=== PATIENT | female | born 1985 | race Caucasian/White ===

== ENCOUNTER 2024-12-27 02:24 | Inpatient (IN) | payer BC ==
[~2024-12-27] VITALS: Ht 170.2 cm; Wt 86.2 kg
[2024-12-27] MEDS: acetaminophen 1,000mg/100ml IV 100 ML IV ONE (02:36)
[2024-12-27] MEDS: metoclopramide 5 mg/ml inj IV ONE (02:36)
[2024-12-27 02:47] LABS: MEAN PLATELET VOLUME 7.4 FL (7.4-10.4); RED CELL DISTRIBUTION WIDTH 14.9 % (11.5-14.5)
[2024-12-27 02:49] LABS: CREATININE 1.01 MG/DL (0.40-0.90); ETHANOL < 10 MG/DL (<10); TOTAL CARBON DIOXIDE 29.8 MMOL/L (24-32); eCRCL 71 ML/MIN; eGFR 60 ML/MIN
--- NOTE | 2024-12-27 03:06 | Physician Documentation ---
History of Present Illness ~ Chief Complaint: Vomiting Stated Complaint: VOMITING,SICK Time Seen by MD: 02:28 HPI Patient presents to the emergency room with sudden onset nausea and vomiting along with splitting headache. Onset of symptoms prior to calling ambulance. Patient states nausea was sudden onset and she was just hanging out. After the nausea and vomiting began she developed a splitting headache the worse she has ever had. No history of headaches. Medication Reconciliation Allergies: Coded Allergies: Sulfa (Sulfonamide Antibiotics) (Verified Allergy, Mild, Rash, 12/27/24) Review of Systems ROS All review of systems negative except as per HPI Physical Exam Vital Signs: Temperature: 98.4, Source: Oral, Heart Rate: 52, Respiratory Rate: 20, BP: 202/118, Pulse Oximetry: 96, Weight: 86.200 Physical Exam General: Patient is awake, alert, oriented x4 in moderate distress Head: Normocephalic and atraumatic. Eyes: Conjunctival normal. EOMI. PERRL. ENT: Mucous membranes moist. Neck: Supple, trachea is midline. Chest: Clear to auscultation bilaterally without rales, rhonchi, or wheezes. There is no accessory muscle use or retractions. Cardiac: Sinus Juan Carlos without murmurs, gallops, or rubs. Abd: Soft, nondistended, nontender, with normoactive bowel sounds. No guarding, rebound, or rigidity. Neuro: Cranial nerves II-XII grossly intact. No focal neuro deficits. Progress Progress Note Initial troponin came back positive. Immediate EKG ordered which does not show any ST-elevation. She denies any chest pain. She does report history of hypertension however denies history of hyperlipidemia, diabetes and does not smoke. She denies first-degree relative with heart disease. Results/Orders Results/Orders Orders - CABRERA GERBER MD Ct Head (12/27/24 02:55) Chest,Single View (12/27/24 03:33) Cta Neck/Head (12/27/24 04:19) Diltiazem-Ns 100mg/100ml (Cardizem-Ns 10 (12/27/24 03:15) Heparin 25,000 Unit/250ml Bag (Heparin 2 (12/27/24 03:40) Heparin 10,000 Unit/Ml 1ml (Heparin 10,0 (12/27/24 03:40) Cbc/Diff (12/28/24 03:00) Cbc/Diff (12/29/24 03:00) Cbc/Diff (12/30/24 03:00) Cbc/Diff (12/31/24 03:00) Cbc/Diff (01/01/25 03:00) Drug Screen, Urine (12/27/24 03:45) Page Hospitalist (12/27/24 05:17) Fill Out Med Reconciliation (12/27/24 05:17) Ua W/Microscopic, Cult If Ind (12/27/24 04:59) Completed Orders - CABRERA GERBER MD Diphenhydramine Inj (Benadryl Inj.) (12/27/24 02:30) Metoclopramide Inj (Reglan Inj) (12/27/24 02:30) Prochlorperazine Inj (Compazine Inj) (12/27/24 02:30) Ct Head (12/27/24 02:55) Acetaminophen 1,000mg/100ml Iv (Ofirmev (12/27/24 02:30) Ethanol (12/27/24 02:31) Cbc/Diff (12/27/24 02:31) Lipase (12/27/24 02:31) Hcg, Ur Ql (12/27/24 02:31) Hs Troponin I W Calculations (12/27/24 02:31) BMP (12/27/24 02:31) Troponin (Single) (12/27/24 03:00) Aspirin 325mg Tablet (Aspirin 325mg Tabl (12/27/24 03:05) PBNP (12/27/24 03:01) Chest,Single View (12/27/24 03:33) Cta Neck/Head (12/27/24 04:19) Iohexol 350mg/Ml 100ml (Omnipaque 350mg/ (12/27/24 03:10) Electrocardiogram (12/27/24 ) Aspirin 325mg Tablet (Aspirin 325mg Tabl (12/27/24 03:40) Pt Inr (12/27/24 03:40) PTT (12/27/24 03:40) Fentanyl/Pf (Fentanyl 0.05 Mg/Ml Syringe (12/27/24 03:50) Message To Nursing (12/27/24 03:50) Heparin 10,000 Unit/Ml 1ml (Heparin 10,0 (12/27/24 03:55) Message To Nursing (12/27/24 03:55) Troponin (Single) (12/27/24 04:35) Ketorolac Trometh 15mg/Ml Vial (Toradol (12/27/24 04:40) Medications Received in ER Medications (Trade) Dose Ordered Sig/Ervin Route PRN Reason Start Time Stop Time Status Last Admin Dose Admin (Benadryl inj.) 50 mg ONCE ONCE IV 12/27/24 02:30 12/27/24 02:31 DC 12/27/24 02:35 50 MG (Reglan inj) 10 mg ONCE ONCE IV 12/27/24 02:30 12/27/24 02:31 DC 12/27/24 02:36 10 MG (Compazine inj) 5 mg ONCE ONCE IV 12/27/24 02:30 12/27/24 02:31 DC 12/27/24 02:36 5 MG Acetaminophen 100 ml @ 400 mls/hr ONCE ONCE IV 12/27/24 02:30 12/27/24 02:44 DC 12/27/24 02:36 400 MLS/HR Diltiazem HCl 100 ml @ 5 mls/hr Q20H IV 12/27/24 03:15 12/27/24 03:26 5 MLS/HR (aspirin 325mg tablet) 1 tab ONCE ONCE PO 12/27/24 03:40 12/27/24 03:41 DC 12/27/24 03:42 1 TAB (fentaNYL 0.05 MG/ML syringe) 50 mcg ONCE ONCE IV 12/27/24 03:50 12/27/24 03:51 DC 12/27/24 03:59 50 MCG (heparin 10,000 unit/ml 1ml inj) 4,000 units ONCE ONCE IV 12/27/24 03:55 12/27/24 03:56 DC 12/27/24 03:55 4,000 UNITS (Toradol injection) 15 mg ONCE ONCE IV 12/27/24 04:40 12/27/24 04:51 DC 12/27/24 04:53 15 MG Vital Signs 12/27/24 12/27/24 12/27/24 12/27/24 02:27 03:15 03:16 03:26 Temp 98.4 Pulse 52 70 75 Resp 20 18 16 B/P (MAP) 202/118 197/118 (144) 197/118 Pulse Ox 96 97 12/27/24 04:29 Pulse 80 Resp 16 B/P (MAP) 142/98 (113) Pulse Ox 95 Laboratory Tests Test 12/27/24 02:32 12/27/24 03:11 12/27/24 04:42 12/27/24 04:59 White Blood Count 14.0 H Red Blood Count 4.40 Hemoglobin 13.0 Hematocrit 38.6 Mean Corpuscular Volume 87.9 Mean Corpuscular Hemoglobin 29.6 Mean Corpuscular Hemoglobin Concent 33.7 Red Cell Distribution Width 14.9 H Platelet Count 366 Mean Platelet Volume 7.4 Neutrophils (%) (Auto) 79.0 H Lymphocytes (%) (Auto) 15.4 L Monocytes (%) (Auto) 4.5 Eosinophils (%) (Auto) 0.5 Basophils (%) (Auto) 0.6 Neutrophils # (Auto) 11.0 H Lymphocytes # (Auto) 2.2 Monocytes # (Auto) 0.6 Eosinophils # (Auto) 0.1 Basophils # (Auto) 0.1 CBC Comment Prothrombin Time 10.3 INR International Normalized Ratio 1.0 Activated Partial Thromboplast Time 25 Coagulation Comments Sodium Level 139 Potassium Level 3.6 Chloride Level 102 Carbon Dioxide Level 29.8 Anion Gap 7 L Blood Urea Nitrogen 17 Creatinine 1.01 H Estimated GFR/1.73 m2 60 BUN/Creatinine Ratio 16.8 Glucose Level 120 H Calcium Level 9.0 Troponin I High Sensitivity 186 *H 272 *H 339 *H Albumin 3.7 Lipase 16 Chemistry Comments Ethyl Alcohol Level < 10 Pro-B-Type Natriuretic Peptide 156 H Urine Specimen Description Cln catch midstream Urine Color Yellow Urine Clarity Slightly cloudy Urine pH 7.5 Urine Specific [place] 1.010 Urine Protein Negative Urine Glucose (UA) Negative Urine Ketones Negative Urine Occult Blood Large H Urine Nitrite Negative Urine Bilirubin Negative Urine Urobilinogen 0.2 Urine Leukocyte Esterase Negative Volume Urine Centrifuged 10 ml Urine HCG, Qualitative Negative Urine Comment Drug Screen Comment Medical Decision Making Findings Who presented to the emergency room with significant nausea and headache. Differentials include but are not limited to gastritis, migraine, intracranial bleeds, dehydration, electrolyte disturbances, ACS therefore emergent labs ordered. Labs concerning for elevated troponins. EKGs reassuring for no ST- elevation. Patient's blood pressure was over 200 upon arrival possible hypertensive emergency. That has concern for intracranial process cause her head was described as where she has ever had therefore CT and CTA was performed which were reassuring. Departure Admitted to Inpatient Unit: yes, to hospitalist Impression: Primary Impression: NSTEMI (non-ST elevated myocardial infarction) Additional Impressions: Hypertensive emergency Headache Condition: Guarded Referrals: NO PRIMARY CARE PROVIDER (PCP) Critical Care Note Total Time (mins): 56 Critical Care Note The very real possibility of a deterioration of this patient's condition required the highest level of my preparedness for sudden, emergent intervention. I provided critical care services, which included medication orders, frequent reevaluations of the patient's condition and response to treatment, ordering and reviewing test results, and discussing the case with various consultants. Excludes time spent performing separately billable procedures. The critical care time associated with the care of the patient was 56 minutes not counting procedures Signature Scribe Signature: No scribe Attestation: The note accurately reflects work and decisions made by me.Cabrera Gerber MD 12/27/24 05:30 CABRERA GERBER MD Dec 27, 2024 03:06
--- NOTE | 2024-12-27 03:13 | ELECTROCARDIOGRAPH REPORT ---
[facility] Test Date: 2024-12-27 Test Time: 03:04:32 Pat Name: SHERRIE BENNETT Department: EMERGENCY ROOM Room: Gender: F [employer]: PM : 1985 Requested By: ALVARO GIBSON Order Number: [id number] Reading MD: Measurements Intervals [place] Rate: 73 P: 15 [place]: 182 QRS: -2 QRSD: 81 T: 27 QT: 392 QTc: 432 Interpretive Statements Sinus rhythm Probable left atrial enlargement Please click the below link to view image of tracing.
[2024-12-27] MEDS: diltiazem-NS 100mg/100ml 100 ML IV SCH (03:26)
--- NOTE | 2024-12-27 03:30 | RADIOLOGY REPORT ---
Clinical History HUSSEIN Comparison None Technique: Contiguous axial CT images of the head without intravenous contrast administration. Coron al and sagittal reformation was performed. All CT scans at this medical facility are performed using dose modulation techniques as appropriate t o a performed exam including the following: Automated exposure control was utilized; adjustment of th e mA and/or kV according to patient size; and use of iterative reconstruction technique. All CT studies are reported to the Dose Index Registry of the [employer]. Without Contrast Radiation Dose: CTDI (mGy): 56; DLP (mGy-cm): 1144 SABRINA, SHERRIE, [id number] Findings: The brain parenchyma shows normal garcia-white matter differentiation without any mass, bleed, edema, o r herniation. The sulci, cisterns, and ventricles are intact. No extra-axial fluid collection or sk ull lesion is present. The imaged portions of the paranasal sinuses and mastoid air cells are clear. Both orbits are grossl y normal. Impression: 1. No acute intracranial abnormality. This report was electronically signed by Nacho Olivas MD on 12/27/2024 3:27:34 AM.
[2024-12-27 03:38] LABS: PRO BRAIN NATRIURETIC PEPTIDE 156 PG/ML (0-125)
[2024-12-27] MEDS ORDERED: heparin 10,000 units/1 ML INJ IV PRN (03:40)
[2024-12-27] MEDS ORDERED: heparin 10,000 units/1 ML INJ IV ONE (03:40)
[2024-12-27] MEDS: MESSAGE TO NURSING IV ONE ×2 (03:50→03:55)
[2024-12-27] MEDS: heparin 10,000 units/1 ML INJ IV ONE (03:55)
[2024-12-27] MEDS: fentaNYL/PF 50MCG/1 ML 2ML syringe IV ONE (03:59)
[2024-12-27 04:06] LABS: APTT 25 SECONDS (22-32); INR 1.0 INR
--- NOTE | 2024-12-27 04:12 | [facility] CONSULT REPORT ---
[facility] Procedure Note [facility] Procedure Note Consult [facility] Note # Demographics Consult Type: General Neurology Patient Location: Emergency Room First Name: SHERRIE Last Name: SABRINA Date of : 1985 Age: 39 Gender: Female Facility: [facility] Time of Initial Page (): 12/27/2024 03:49 Time of Return Call (): 12/27/2024 03:50 # HPI Chief Complaint: - headache History: 39 yo F p/w sudden onset of severe headache. It's pounding and located on the top of her headache. It's associated with photophobia, nausea and vomiting. 10/10 at its worst, now 8/10 after IV Tylenol and Compazine. She has history of headache but never this severe. Last Known Normal: Midnight # Scores Level of Consciousness 1a: [0] = Alert; keenly responsive LOC Questions 1b: [0] = Answers both questions correctly LOC Commands 1c: [0] = Performs both tasks correctly Best Gaze 2: [0] = Normal Visual 3: [0] = No visual loss Facial Palsy 4: [0] = Normal symmetrical movements Motor Arm Left 5a: [0] = No drift Motor Arm Right 5b: [0] = No drift Motor Leg Left 6a: [0] = No drift Motor Leg Right 6b: [0] = No drift Limb Ataxia 7: [0] = Absent Sensory 8: [0] = Normal Best Language 9: [0] = No aphasia Dysarthria 10: [0] = Normal Extinction and Inattention 11: [0] = No abnormality NIHSS Total: 0 # ROS Additional: - complete review of systems otherwise negative # PMH-FH-SH Past Medical History: - hypertension # Data Head CT: - no bleed # Assessment Impression: Migrainous headache Ruling out aneurysmal subarachnoid hemorrhage # Plan Imaging: (urgency: routine): - CT Angiogram Head and CT Angiogram Neck AND call back with results if abnormal Medication: - migraine cocktail: Toradol 30 mg IV + Benadryl 25 mg IV + antiemetic IV Other: - If patient has any neurological deterioration please call me back immediately - If CTA negative and symptoms resolved may dispo; otherwise would admit for MRI w/wo and symptom control - I have discussed my recommendations with the referring provider # Logistics Attestation of consult completion: The patient is located at: [facility]. Facility staff participated in the visit. I performed this telemedicine visit from my offsite office utilizing interactive 2 way audio and visual telecommunication technology. Total time spent in telemedicine encounter: I spent 20 minutes reviewing clinical data and/or imaging, obtaining history, examining the patient, communicating with the onsite care team, and in preparation of this report. # Demographics First Name: SHERRIE Last Name: SABRINA Facility: [facility] Electronically signed at 12/27/2024 04:11 (Juana Diaz Time) by Marifer Hand MD Neuro Consult Order placed for: Yes MARIFER HAND MD Dec 27, 2024 04:12
--- NOTE | 2024-12-27 04:20 | RADIOLOGY REPORT ---
Clinical History cp Comparison None Technique: Single chest x-ray Without Contrast SHERRIE BENNETT, [id number] Findings: Heart - normal lungs - no consolidation. No pneumothorax bones - no acute fracture. Other- Impression: 1. No acute cardiopulmonary disease This report was electronically signed by Maxwell Gardner MD on 12/27/2024 4:17:10 AM.
[2024-12-27] MEDS: ketorolac trometh 15mg/ml vial 15 MG/ML ML IV ONE (04:53)
--- NOTE | 2024-12-27 05:20 | RADIOLOGY REPORT ---
Procedure: CT CTA NECK/HEAD HISTORY: possible stroke Comparison Study: None Exam Date:12/27/2024 04:07 AM TECHNIQUE: CTA head without and with intravenous contrast. CTA neck with intravenous contrast. 3D abbie ONEPLE postprocessing was performed and images were used for interpretation and reporting. Radiation Dose : CT Dose: CTDI volume is 25 mGy. Dose-length product is 50 mGy*cm FINDINGS: CTA head: There is normal enhancement of the visualized distal internal carotid, anterior and middle cerebral a rteries. There is a normal anterior communicating artery complex. There are bilateral posterior commu nicating arteries. The vertebral, basilar, cerebellar and posterior cerebral arteries are within norm al limits. The early parenchymal enhancement is grossly unremarkable. The visualized intracranial mira ous structures are grossly unremarkable. CTA neck: The visualized thoracic aortic arch and proximal great vessels are unremarkable. The left common, int ernal and external carotid arteries are within normal limits. The right common, internal and external carotid arteries are within normal limits. The cervical segments of the right and left vertebral art eries are within normal limits. The limited visualized lung apices are clear. The surrounding soft ti ssues and osseous structures are otherwise unremarkable. IMPRESSION: No evidence of hemodynamically significant intracranial stenosis, proximal occlusion or aneurysm. No evidence of hemodynamically significant cervical stenosis or dissection. CAROTID STENOSIS REFERENCE Distal internal carotid artery diameter as the denominator for stenosis measurement: MILD = <50% stenosis. MODERATE = 50-69% stenosis. SEVERE = 70-89% stenosis. CRITICAL = 90-99% stenosis. OCCLUDED = 100% stenosis. All CT scans at this medical facility are performed using dose modulation techniques as appropriate t o a performed exam including the following: Automated exposure control was utilized; adjustment of th e MA and/or KV according to patient size; and use of iterative reconstruction technique.
[2024-12-27 05:21] LABS: LEUKOCYTE ESTERASE ,URINE NEGATIVE (Neg); NITRITES, URINE NEGATIVE (Neg); OCCULT BLOOD,URINE LARGE (Neg)
[2024-12-27 05:22] LABS: UA COLLECTION TYPE CLN CATCH MIDSTREAM
[2024-12-27 05:23] LABS: URINE HCG NEGATIVE (NEG)
[2024-12-27 05:28] LABS: AMORPHOUS PHOSPHATES 1+; SQUAMOUS EPITHELIAL CELL,UR MANY /LPF (FEW)
[2024-12-27] MEDS: heparin 25,000 UNIT/250ml bag 250 ML IV PRN (05:30)
[2024-12-27 05:35] LABS: URINE AMPHETAMINE SCREEN NEGATIVE (Neg); URINE BARBITUATE SCREEN NEGATIVE (Neg); URINE BENZODIAZEPINES SCREEN NEGATIVE (Neg); URINE CANNABINOID SCREEN POSITIVE (Neg); URINE COCAINE SCREEN NEGATIVE (Neg); URINE METHADONE SCREEN NEGATIVE (Neg); URINE OPIATE SCREEN NEGATIVE (Neg); URINE PHENCYCLIDINE SCREEN NEGATIVE (Neg)
--- NOTE | 2024-12-27 08:23 | HISTORY AND PHYSICAL ---
History & Physical Providers to CC , headaches, nausea, vomiting, elevated blood pressure ~ History of Present Illness Reason for Admit\Complaint: As above History of Present Illness This is a 39 years old white female with history of uncontrolled blood pressure, history of migraine headaches, presented today to emergency department chief complaint headaches associated nausea vomiting and elevated blood pressure; in addition Patient presents to the emergency room with sudden onset nausea and vomiting along with splitting headache. Onset of symptoms prior to calling ambulance. Patient states nausea was sudden onset and she was just hanging out. After the nausea and vomiting began she developed a splitting headache the worse she has ever had. No history of headaches. In emergency department patient was evaluated by physician and virtual neurologist, diagnosed with non ST-elevation GA, hypertensive emergency, headaches, and decision was made to admit patient for further evaluation and treatment, no additional complaint or concern. Allergies: Coded Allergies: Sulfa (Sulfonamide Antibiotics) (Verified Allergy, Mild, Rash, 12/27/24) Active prescriptions I reviewed reconciled Home Medications Pending Past Medical History Past Medical History As in [facility] Past Surgical History Surgical History Comment As in [facility] Past Social History Social History Comment Deny illicit drug abuse tobacco alcohol use live with the family good social support Health Maintenance Health Maintenance Noncontributory ROS ROS Constitutional : no fever , no chills, or weakness. No diaphoresis. Allergic/Immunologic, no lymphadenopathy, no hives, no skin eruptions. Eyes, no recent visual changes, no eye pain, no photophobia. Ears, nose, mouth, throat, no sore throat, no nosebleed, no ear pain. Cardiovascular, no palpitations, skipped beats, chest pain, no peripheral edema, Respiratory, no dyspnea, orthopnea, cough, hemoptysis, chest wall pain. Gastrointestinal, no abdominal pain, positive for nausea, vomiting, no constipation or diarrhea. : no dysuria, hematuria, pelvic pain, urethral d/c. Endocrine, no polyuria, polydipsia, recent unintentional weight gain or loss. Hematologic/Lymphatic, no petechiae, no enlarged lymph nodes, no bone pain. Integumentary, no rash, no skin lesions, Musculoskeletal, no muscle aches, or pain, no muscle cramps, no recent change in gait Neurological, no dizziness, positive for headache, no syncope, no paresthesia. Psychiatric, no delusions, visual hallucinations, or hearing hallucinations. ROS - in rest is as in HPI. Exam Vitals: Vital Signs Date Time Temp Pulse Resp B/P (MAP) Pulse Ox O2 Delivery O2 Flow Rate FiO2 12/27/24 06:37 88 19 134/95 (108) 12/27/24 05:47 98 12/27/24 02:27 98.4 Vital signs, stable ,afebrile. Pulse Oximetry reflects adequate oxygenation. BMI is 29, weight 86 kg, blood pressure on admission 202/118 General: well developed, well nourished. Awake , alert, and oriented x4, resting comfortably in the bed, in no acute distress . Skin: Warm, dry, no pallor, no rash or petechiae. HEENT: Atraumatic, normocephalic, EOMI, anicteric sclera B; pink conjunctiva; PERRLA, normal oropharynx, moist oral and nasal mucosa. Tympanic membrane , nose , throat clear. Neck: Trachea midline. Supple, full range of motion, no JVD, bruit , hepatojugular reflex , lymphadenopathy or masses, or other lesions Cardiac: Regular rhythm, regular rate no murmurs, rubs, or gallops. Normal S1 and S2, no S3 noticed. PMI is normal. Respiratory: Equal breath sounds bilaterally, no tachypnea; lungs clear to auscultation bilaterally, no wheezing ,rub or rales, or crackles. Chest wall is symmetric and without deformity. No signs of trauma. Chest wall is nontender. No signs of respiratory distress. Resonance is normal upon percussion bilaterally. Gastrointestinal: Abdomen symmetric, non-distended, soft, non-tender, normal bowel sounds x4 quadrant, normoactive, no hepatosplenomegaly , no masses , no bruit, no flank pain bilaterally. No voluntary guarding, rebound, or rigidity. No tenderness to percussion. No pulsatile masses. Equal femoral pulses. No Amaya's sign or McBurney point tenderness. Back; no CVA tenderness bilaterally, no deformities. Neck and back are without deformity as well. No tenderness noted on palpation of the spinous processes. Spinous processes are midline. Cervical, thoracic, and lumbar paraspinal muscles are not tender and are without spasm. : Not indicated Musculoskeletal: Extremities, normal range of motion, non-tender, muscle strength 5/5 x 4. Negative Homans signs bilaterally on lower extremity. Distal pulses full symmetrical, no clubbing, cyanosis , edema. Neurological: Speech is clear, alert, and oriented x 4. No motor or sensory deficit, deep tendon reflexes normal, cerebellar intact. Cranial nerves II-XII intact. Psych: Alert and or appropriate, normal affect. Vascular: Good distal pulses, which are equal x4; capillary refill less than 2 seconds. Lymphatic, no lymphadenopathy. Diagnostic Data Last Recorded Lab Results: 12/27/24 0232 12/27/24 0232 Diagnostic Data: Laboratory Tests Test 12/27/24 02:32 Prothrombin Time 10.3 SECONDS (9.0-12.0) INR International Normalized Ratio 1.0 INR Activated Partial Thromboplast Time 25 SECONDS (22-32) Coagulation Comments Advance Care Planning Advanced Care plannin - 30 Minutes Additional Plan Assessment Hypertensive emergency Headaches secondary to above Non ST-elevation GA type 2 secondary to hypertensive emergency Hypertensive encephalopathy associated with nausea vomiting History of migraine headaches, now in exacerbation Obesity BMI 29.8 Obstructive sleep apnea, rule out Plan IV fluids, keep patient well hydrated euvolemic Serial troponin EKG Patient was evaluated by virtual neurologist, recommendations to be implemented Pain control, p.o. IV analgesics Blood pressure control, MRI of the head pending Echocardiography pending Consulted Dr. Meek Cardiology recommended discontinue Heparin infusion, and continue aspirin p.o. Additional lab work pending PT Evaluation and treatment I reconciled home medications DVT gastropathy prophylaxis addressed Sepsis Screening Reassessment Date: Dec 27, 2024 Date of Service: Dec 27, 2024 Billing Provider: ERENDIRA RAYA MD Common Visit Codes: 86715-[id number] INP/OBS CARE(HIGH) Secondary Visit Codes: 93026-[id number] CARE PLAN 30 MINUTES ERENDIRA RAYA MD Dec 27, 2024 08:22
[2024-12-27] MEDS ORDERED: potassium Cl 40MEQ/1/2NS 520ml 520 ML IV PRN (08:25)
[2024-12-27] MEDS ORDERED: magnesium hydroxide 30ml (MOM) UD suspension PO PRN (08:25)
[2024-12-27] MEDS ORDERED: ondansetron 4mg rapidly disintigrating tab PO PRN (08:25)
[2024-12-27] MEDS ORDERED: HYDROcodone/acetaminophen 5mg/325mg tablet PO PRN (08:25)
[2024-12-27] MEDS ORDERED: mag hydrox/Alum hydrox/simeth 30ml oral suspension PO PRN (08:25)
[2024-12-27] MEDS ORDERED: acetaminophen 650mg rectal suppository RC PRN (08:25)
[2024-12-27] MEDS ORDERED: metoclopramide 5 mg/ml inj IV PRN (08:25)
[2024-12-27] MEDS ORDERED: bisacodyl 10mg suppository rectal RC PRN (08:25)
[2024-12-27] MEDS ORDERED: magnesium sulf-water 2g/50mL 50 ML IV PRN (08:25)
[2024-12-27] MEDS ORDERED: magnesium Cl slow-release 64mg tablet PO PRN (08:25)
[2024-12-27] MEDS ORDERED: potassium Cl 20 mEq SR tablet PO PRN (08:25)
[2024-12-27] MEDS ORDERED: magnesium sulf-water 4G/100mL 100 ML IV PRN (08:25)
[2024-12-27 08:48] LABS: PHOSPHORUS 3.3 MG/DL (2.3-4.5)
[2024-12-27] MEDS: HYDROcodone/acetaminophen 10/325mg tab PO PRN (08:51)
[2024-12-27] MEDS ORDERED: ESCI20TA39 PO (09:07)
[2024-12-27] MEDS ORDERED: TRAZ-251 PO (09:07)
[2024-12-27] MEDS ORDERED: LOSA1TAB41 PO (09:07)
[2024-12-27] MEDS ORDERED: ESTR-71 (09:07)
[2024-12-27] MEDS ORDERED: SEMA2.4P SUBCUT (09:15)
[2024-12-27 11:00] VITALS: BP 148/89; PULSE 93; RESP 15; TEMP 97.4; O2SAT 98
[2024-12-27] MEDS: HYDROmorphone inj. 0.5 MG/0.5 ML DISP.SYRIN IV PRN (12:02)
[2024-12-27 12:40] VITALS: RESP 14; O2SAT 96
[2024-12-27] MEDS: ketorolac trometh 30MG/ML vial 30 MG/ML VIAL IV SCH (13:37)
[2024-12-27 18:00] VITALS: BP 143/93; PULSE 88; RESP 16; TEMP 97.6; O2SAT 96
--- NOTE | 2024-12-27 18:15 | RADIOLOGY REPORT ---
EXAM: MR MRI HEAD CLINICAL HISTORY: HUSSEIN CVA COMPARISON: CT CT HEAD on DOS: 12/27/24 TECHNIQUE: Multiplanar, multisequence magnetic resonance imaging of the brain was performed without intravenous contrast. FINDINGS: Normal brain volume and formation. No hemorrhages, masses, mass effect, midline shift, herniation or cytotoxic edema following large vas cular territory. No intra-axial or extra-axial fluid collections. No evidence of hydrocephalus. The basal cisterns are patent. The vascular flow voids are maintained. The pituitary gland, sella and parasellar regions are unremarkable. The cerebellar tonsils are in no rmal position. The cerebellum is unremarkable. The orbits and globes are unremarkable. Mucous retention cysts within the right maxillary sinus. Mini mal mucoperiosteal thickening of the ethmoid air cells. Remainder of the paranasal sinuses and masto ids are clear. No worrisome calvarial lesions. IMPRESSION: No evidence of acute intracranial abnormalities.
[2024-12-27] MEDS: ondansetron/PF 4mg/2ml inj IV PRN (18:17)
[2024-12-27] MEDS: K and/or MAG REPLACEMENT MC SCH (20:00)
[2024-12-27] MEDS: docusate sod 100mg capsule PO SCH (21:22)
[2024-12-27 22:00] VITALS: BP 145/95; PULSE 78; RESP 18; TEMP 97.6; O2SAT 97
[2024-12-28 02:00] VITALS: BP 144/97; PULSE 80; RESP 18; TEMP 97.8; O2SAT 96
[2024-12-28 06:41] VITALS: BP 156/94; PULSE 84; RESP 18; TEMP 97.5; O2SAT 94
[2024-12-28 07:10] LABS: CHOL/HDL RATIO 3.1 (0.00-4.99); CREATININE 0.85 MG/DL (0.40-0.90); LDL CHOLESTEROL 81 MG/DL (50-100); TOTAL CARBON DIOXIDE 29.0 MMOL/L (24-32); eCRCL 85 ML/MIN; eGFR 74 ML/MIN
[2024-12-28] MEDS: aspirin 81mg, enteric-coated 1 TAB TABLET.DR PO SCH (07:12)
[2024-12-28] MEDS: ESCITALOPRAM 10 mg tablet 10 MG TABLET PO SCH (07:13)
[2024-12-28] MEDS: pantoprazole 40mg Tablet.DR PO SCH (07:13)
--- NOTE | 2024-12-28 07:31 | RADIOLOGY REPORT ---
CLINICAL INFORMATION: Hypertensive emergency. TECHNIQUE: Grayscale sonographic imaging of the kidneys and bladder was performed, assisted by color Doppler technique. COMPARISON: None FINDINGS: The right kidney measures 13.1 cm in length. No hydronephrosis. Unremarkable cortical th ickness and echogenicity. Portions of the left kidney are obscured The left kidney measures 9.7 cm in length. No hydronephrosi s. Unremarkable cortical thickness and echogenicity. Prevoid bladder volume measured 230 mL. No bladder wall thickening or mass visualized. Bilateral uret eral jets demonstrated. IMPRESSION: 1. No hydronephrosis. 2. Portions of the left kidney are poorly visualized. Otherwise grossly unremarkable appearance of th e bilateral kidneys. 3. Unremarkable sonographic appearance of the bladder as described above.
[2024-12-28] MEDS: potassium Cl 20 mEq SR tablet PO PRN (07:58)
[2024-12-28 08:00] VITALS: RESP 18; O2SAT 94
[2024-12-28 11:10] VITALS: BP 97/53; PULSE 58; RESP 12; TEMP 97; O2SAT 95
[2024-12-28] MEDS ORDERED: DICL50TA10 PO (12:37)
[2024-12-28] MEDS ORDERED: METO10TA3 PO (12:37)
[2024-12-28] MEDS ORDERED: HYDR-3686 PO (12:37)
[2024-12-28] MEDS ORDERED: ASPI81TA52 PO (12:37)
[2024-12-28 13:03] VITALS: RESP 14
--- NOTE | 2024-12-28 14:39 | DISCHARGE SUMMARY ---
Discharge Summary Providers to Feels better today, minimal headaches, asking to be discharged home for family emergency reasons ~ Discharge Summary Assessment Hypertensive emergency Headaches , common, secondary to above Non ST-elevation PR type 2 secondary to hypertensive emergency Hypertensive encephalopathy associated with nausea vomiting History of migraine headaches, now in exacerbation Obesity BMI 29.8 Obstructive sleep apnea Admission Diagnosis: HTN emergency; PR, HUSSEIN Admission Diagnosis Comment: Hypertensive emergency Headaches , common, secondary to above Non ST-elevation PR type 2 secondary to hypertensive emergency Hypertensive encephalopathy associated with nausea vomiting History of migraine headaches, now in exacerbation Obesity BMI 29.8 Obstructive sleep apnea Hospital Course DATE OF ADMISSION: December 27, 2024 DATE OF DISCHARGE: December 28, 2024 Discharge Diagnosis\Comment: Hypertensive emergency Headaches , common, secondary to above Non ST-elevation PR type 2 secondary to hypertensive emergency Hypertensive encephalopathy associated with nausea vomiting History of migraine headaches, now in exacerbation Obesity BMI 29.8 Obstructive sleep apnea Operations\Procedures: Non Consultants: Virtual neurologist Complications: Non Condition on DC: Stable Discharge Summary: This is a 39 years old white female with history of uncontrolled blood pressure, history of migraine headaches, presented today to emergency department chief complaint headaches associated nausea vomiting and elevated blood pressure; in addition Patient presents to the emergency room with sudden onset nausea and vomiting along with splitting headache. Onset of symptoms prior to calling ambulance. Patient states nausea was sudden onset and she was just hanging out. After the nausea and vomiting began she developed a splitting headache the worse she has ever had. No history of headaches. In emergency department patient was evaluated by physician and virtual neurologist, diagnosed with non ST-elevation PR, hypertensive emergency, headaches, and decision was made to admit patient for further evaluation and treatment, no additional complaint or concern. After admission patient was extensively evaluated, and comprehensively treated, today she feels fine, minimal headaches, asking to be discharged home for family emergency reasons, I recommended to the patient to continue inpatient treatment, patient understood but elected to be discharged, she will be discharged in stable condition, follow-up PCP in the morning, recommended to return to emergency department if condition worsens, today on physical exam Vital signs, stable ,afebrile. Pulse Oximetry reflects adequate oxygenation. General: well developed, well nourished. Awake , alert, and oriented x4, resting comfortably in the bed, in no acute distress . Skin: Warm, dry, no pallor, no rash or petechiae. HEENT: Atraumatic, normocephalic, EOMI, anicteric sclera B; pink conjunctiva; PERRLA, normal oropharynx, moist oral and nasal mucosa. Tympanic membrane , nose , throat clear. Neck: Trachea midline. Supple, full range of motion, no JVD, bruit , hepatojugular reflex , lymphadenopathy or masses, or other lesions Cardiac: Regular rhythm, regular rate no murmurs, rubs, or gallops. Normal S1 and S2, no S3 noticed. PMI is normal. Respiratory: Equal breath sounds bilaterally, no tachypnea; lungs clear to auscultation bilaterally, no wheezing ,rub or rales, or crackles. Chest wall is symmetric and without deformity. No signs of trauma. Chest wall is nontender. No signs of respiratory distress. Resonance is normal upon percussion bilaterally. Gastrointestinal: Abdomen symmetric, non-distended, soft, non-tender, normal bowel sounds x4 quadrant, normoactive, no hepatosplenomegaly , no masses , no bruit, no flank pain bilaterally. No voluntary guarding, rebound, or rigidity. No tenderness to percussion. No pulsatile masses. Equal femoral pulses. No Amaya's sign or McBurney point tenderness. Back; no CVA tenderness bilaterally, no deformities. Neck and back are without deformity as well. No tenderness noted on palpation of the spinous processes. Spinous processes are midline. Cervical, thoracic, and lumbar paraspinal muscles are not tender and are without spasm. Musculoskeletal: Extremities, normal range of motion, non-tender, muscle strength 5/5 x 4. Negative Homans signs bilaterally on lower extremity. Distal pulses full symmetrical, no clubbing, cyanosis , edema. Neurological: Speech is clear, alert, and oriented x 4. No motor or sensory deficit, deep tendon reflexes normal, cerebellar intact. Cranial nerves II-XII intact. Psych: Alert and or appropriate, normal affect. Vascular: Good distal pulses, which are equal x4; capillary refill less than 2 seconds. Lymphatic, no lymphadenopathy. *Problems/Diagnosis: (1) Headache Status: Acute (2) NSTEMI (non-ST elevated myocardial infarction) Status: Acute (3) Hypertensive emergency Status: Acute Total Time Spent on D/C: > 30 Minutes Date of Service: Dec 28, 2024 Billing Provider: ERENDIRA RAYA MD Common Visit Codes: 06525-ABS/OBS DISCH DAY >30min ERENDIRA RAYA MD Dec 28, 2024 14:39
--- NOTE | 2024-12-29 09:53 | CARDIOLOGY REPORT ---
APPROVED REPORT EXAM: Comprehensive 2D, Doppler, and color-flow Echocardiogram. 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 137.0 cm/s AoV VTI 26.5 cm AO Peak GR. 7.5 mmHg AO Mean GR. 4 mmHg LVOT VTI 22.84 cm LVOT Peak Aaron. 101.3 cm/s LEVI(VTI)/BSA 2.71 cm2/m2 LEVI (VTI) 2.71 cm2 Mitral Valve MV E Velocity 76.6 cm/s MV Peak Gr. 3 mmHg MV DECEL TIME 224 ms MV A Velocity 79.4 cm/s MV PHT 56 ms E/A Ratio 1.0 MVA (PHT) 3.93 cm2 MV VMax91.6 cm/s TDI Lateral E' P. V8.43 cm/s E/Lateral E' 9.1 Tricuspid Valve TR P. Velocity 143 cm/s RAP ESTIMATE 10 mmHg TR Peak Gr. 8 mmHg RVSP 18 mmHg LEFT VENTRICLE The left ventricle is normal size with mild proximal septal thickening. Overall systolic function is normal. Overall LVEF is 65-70%. RIGHT VENTRICLE Right ventricle is mildly dilated with adequate function. ATRIA The left atrium size is normal. AORTIC VALVE Trileaflet AV appears mildly sclerotic without stenosis. No insufficiency. MITRAL VALVE Mitral valve leaflets are mildly thickened with mild annular calcification. No stenosis. Trace regurg itation. TRICUSPID VALVE The tricuspid valve is normal in structure with trace regurgitation. PULMONIC VALVE The pulmonary valve is normal in structure with physiologic insufficiency. GREAT VESSELS The aortic root is normal in size. The ascending aorta is normal in size. The IVC is normal in size a nd collapses >50% with inspiration. PERICARDIUM Normal pericardium. No effusion. Other Information Study Quality: Adequate Conclusion Overall LVEF is 65-70%. Right ventricle is mildly dilated with adequate function. Trileaflet AV appears mildly sclerotic without stenosis. No insufficiency. Mitral valve leaflets are mildly thickened with mild annular calcification. No stenosis. Trace regu rgitation. The tricuspid valve is normal in structure with trace regurgitation. The pulmonary valve is normal in structure with physiologic insufficiency. Normal pericardium. No effusion.
[2025-01-01 06:12] LABS: METANEPHRINE, PL <25.0 pg/mL (0.0-88.0); NORMETANEPHRINE, PL 65.4 pg/mL (0.0-218.9)
[2025-01-03 15:11] LABS: ALDOSTERONE 3.4 ng/dL (.)
== END 2024-12-28 14:22 | disposition home or self-care (01) | DRG 77 ==
LOC: ER 02:26 → ED HOLD 08:31 → PCU 3S 10:23
PROVIDERS: ADMIT Family Medicine; ATTEND Family Medicine
PROC: B32T1ZZ Computerized Tomography (CT Scan) of Left Pulmonary Artery using Low Osmolar Contrast (ICD-10-PCS; principal; 2024-12-27)
PROC: B3201ZZ Computerized Tomography (CT Scan) of Thoracic Aorta using Low Osmolar Contrast (ICD-10-PCS; 2024-12-27)
PROC: B32S1ZZ Computerized Tomography (CT Scan) of Right Pulmonary Artery using Low Osmolar Contrast (ICD-10-PCS; 2024-12-27)
DX: I67.4 Hypertensive encephalopathy (principal); I21.A1 Myocardial infarction type 2; I16.1 Hypertensive emergency; I10 Essential (primary) hypertension; G43.909 Migraine, unspecified, not intractable, without status migrainosus; G47.33 Obstructive sleep apnea (adult) (pediatric); E66.9 Obesity, unspecified; Z68.29 Body mass index [BMI] 29.0-29.9, adult; Z88.2 Allergy status to sulfonamides
CPT/HCPCS: 36415; 70450; 70496; 70498; 70551; 71045; 76770; 80048; 80053; 80061; 80305; 80320; 81001; 81025; 82088; 82550; 83036; 83690; 83735; 83835; 83880; 84100; 84132; 84244; 84443; 84484; 85025; 85379; 85610; 85730; 87081; 93005; 93306; 96365; 96375; 99291; C1758; G0378; J0131; J0780; J1171; J1200; J1644; J1885; J2270; J2405; J2765; J3010; J3490; Q9967